=== PATIENT | female | born 1980 | race Caucasian/White ===

== ENCOUNTER 2021-04-19 14:28 | Emergency (ER) | payer MEDICARE | END 2021-04-19 15:35 | disposition home or self-care (01) | LOC: ER1 14:28 | DX: M25.562 Pain in left knee (principal); F17.200 Nicotine dependence, unspecified, uncomplicated | CPT/HCPCS: 73564; 99283 ==

== ENCOUNTER → 2021-05-09 | Outpatient (CLI) | payer MEDICARE | LOC: EMI 15:26 | DX: S83.512A Sprain of anterior cruciate ligament of left knee, initial encounter (principal); S83.422A Sprain of lateral collateral ligament of left knee, initial encounter; R93.6 Abnormal findings on diagnostic imaging of limbs; X58.XXXA Exposure to other specified factors, initial encounter | CPT/HCPCS: 73721 ==

== ENCOUNTER 2021-05-31 18:55 | Emergency (ER) | payer MEDICARE ==
[2021-05-31] MEDS ORDERED: CYCLOBENZAPRINE10 MG PO (21:36)
[2021-05-31] MEDS ORDERED: IBU600 MG PO (21:36)
[2021-05-31] MEDS ORDERED: LIDOCAINE PAIN1 EACH TP (21:36)
== END 2021-05-31 22:00 | disposition home or self-care (01) ==
LOC: ER1 18:55
DX: M54.12 Radiculopathy, cervical region (principal); F17.210 Nicotine dependence, cigarettes, uncomplicated
CPT/HCPCS: 72125; 96372; 99283; J1885